=== PATIENT | female | born 1960 | race Caucasian/White ===

== ENCOUNTER 2022-01-25 12:48 | Emergency (ER) | payer BC ==
[2022-01-25] MEDS ORDERED: Dexamethasone 10 MG/ML VIAL ONE (13:41)
== END 2022-01-25 13:50 | disposition home or self-care (01) ==
LOC: CSHERS 12:48
DX: J20.9 Acute bronchitis, unspecified (principal); E03.9 Hypothyroidism, unspecified
CPT/HCPCS: 71045; J1100

== ENCOUNTER 2022-06-05 08:42 | Outpatient (CLI) | payer BC | END 2022-06-05 08:43 | disposition home or self-care (01) | LOC: CSHMAMMO 08:42 | PROVIDERS: ATTEND Nurse Practitioner Family | DX: Z12.31 Encounter for screening mammogram for malignant neoplasm of breast (principal); R92.8 Other abnormal and inconclusive findings on diagnostic imaging of breast | CPT/HCPCS: 77063; 77067 ==

== ENCOUNTER 2023-09-02 08:57 | Outpatient (CLI) | payer BC | END 2023-09-02 08:58 | disposition home or self-care (01) | LOC: CSHMAMMO 08:57 | PROVIDERS: ATTEND Nurse Practitioner Family | DX: Z12.31 Encounter for screening mammogram for malignant neoplasm of breast (principal) | CPT/HCPCS: 77063; 77067 ==